=== PATIENT | male | born 1955 | race African-American/Black ===

== ENCOUNTER 2016-09-25 19:53 | Emergency (ER) | payer SELFPAY ==
[~2016-09-25] VITALS: Ht 182.9 cm; Wt 99.8 kg
[2016-09-25 20:10] VITALS: BP 133/88
[2016-09-25 20:30] VITALS: BP 133/88
--- NOTE | 2016-09-27 21:52 | Emergency Room Report ---
History of Present Illness General Chief Complaint: Alcohol Intoxication Source: Patient Present Illness HPI 60-year-old male visits to ER for evaluation. Patient was found sitting on sidewalk drinking alcohol. When police came to question the patient he did not answer so they called 911. EMS brought patient here for evaluation. Upon arrival patient is agitated and combative. Screaming at staff. No signs of head trauma. Denies drug use. unwilling to answer any additional questions. No aggravating or relieving factors. Denies any other associated symptoms Allergies: Coded Allergies: ERYTHROMYCIN BASE (Verified Allergy, Unknown, 09/25/16) Uncoded Allergies: ERYTHROMYCIN (Allergy, Unknown, 09/25/16) Patient History Past Medical History: none Past Surgical History: none Pertinent Family History: none Social History: Reports: alcohol use, Denies: drug use, smoking Immunizations: UTD Reviewed Nursing Documentation: PMH: Agreed, PSxH: Agreed Nursing Documentation-PMH Past Medical History Deferred: Pt Cognitively Impaired Past Medical History: No Stated History Review of Systems All Other Systems: limited - unwilling to answer questions Physical Exam Vital Signs Date Time Temp Pulse Resp B/P Pulse Ox O2 Delivery O2 Flow Rate FiO2 09/25/16 19:54 97 20 133/88 98 Room Air Sp02 EP Interpretation: reviewed, normal General Appearance: no apparent distress, alert, GCS 15, non-toxic Head: normocephalic, atraumatic Eyes: bilateral eye PERRL, bilateral eye normal inspection ENT: hearing grossly normal, normal pharynx, no angioedema, normal voice Neck: full range of motion, supple/symm/no masses Respiratory: chest non-tender, lungs clear, normal breath sounds, speaking full sentences Cardiovascular #1: regular rate, rhythm, no edema Cardiovascular #2: 2+ carotid (R), 2+ carotid (L), 2+ radial (R), 2+ radial (L) , 2+ dorsalis pedis (R), 2+ dorsalis pedis (L) Gastrointestinal: normal bowel sounds, non tender, soft, non-distended, no guarding, no rebound Rectal: deferred Genitourinary: normal inspection, no CVA tenderness Musculoskeletal: back normal, gait/station normal, normal range of motion, non- tender Neurologic: alert, oriented x3, responsive, motor strength/tone normal, sensory intact, speech normal Psychiatric: judgement/insight normal, memory normal, mood/affect normal, no suicidal/homicidal ideation Reflexes: 3+ bicep (R), 3+ bicep (L), 3+ tricep (R), 3+ tricep (L), 3+ knee (R) , 3+ knee (L) Skin: normal color, no rash, warm/dry, well hydrated Lymphatic: no adenopathy Medical Decision Making Diagnostic Impression: Primary Impression: Acute alcoholic intoxication Qualified Codes: F10.120 - Alcohol abuse with intoxication, uncomplicated ER Course Hospital Course 60-year-old male presents to ED status post EtOH intoxication. Clinical course Patient placed on stretcher. Patient is agitated and combative. I explained to patient that if he does not behave in an appropriate manner he will have to leave. Patient walks out of ER patient walks with steady gait Diagnosis - ETOH intoxication patient eloped Last Vital Signs Date Time Temp Pulse Resp B/P Pulse Ox O2 Delivery O2 Flow Rate FiO2 09/25/16 20:30 20 133/88 98 Room Air 09/25/16 19:54 97 Status: improved Disposition: ELOPED Condition: Stable Referrals: NOT CHOSEN ELIUD/,REFERRING (PCP) ANA REYES M.D. Sep 27, 2016 21:52
== END 2016-09-25 20:30 | disposition left against medical advice (07) ==
LOC: EDBD 19:53 → EMR 20:30
DX: F10.120 Alcohol abuse with intoxication, uncomplicated (principal); Z88.8 Allergy status to other drugs, medicaments and biological substances
CPT/HCPCS: 99284